=== PATIENT | female | born 1955 | race Caucasian/White ===

== ENCOUNTER 2020-08-15 09:15 | Emergency (ER) | payer MEDICARE, OTHER ==
[~2020-08-15] VITALS: Ht 162.6 cm; Wt 110.0 kg
[~2020-08-15 09:15] MED LIST: BENA20TA4 PO; LACT20SO PO; PANT40TA77 PO; SPIR100T4 PO; THIA100T22 FT
[2020-08-15 09:28] LABS: CREATININE ISTAT 2.2 mg/dL (0.5-1.4); HEMOGLOBIN ISTAT 7.8 g/dL (12-15); ION CA ISTAT 1.2 mmol/L (1.13-1.32); POTASSIUM ISTAT 5.6 mmol/L (3.5-5.0)
--- NOTE | 2020-08-15 09:38 | PHYS DOC ---
Past Medical History Past Medical History: Liver Disease, Other Additional Past Medical Histor: ETOH ABUSE Past Surgical History: Other Additional Past Surgical Histo: UNKNOWN Smoking Status: Current Every Day Smoker Alcohol Use: Heavy General Adult EDM: Chief Complaint: CPR/FULL ARREST HPI: HPI: 64-year-old female who presents to the emergency department in cardiac arrest. She was at the facility across the street when nursing staff found her unresponsive and started CPR. Patient comes in by EMS. Initial rhythm was reported to be asystole. On arrival the patient's rhythm was PEA. Onset today. Location cardiac. Duration constant. No alleviating or exacerbating factors. Review of systems, medical history, allergies, social history and surgical history are unable to be obtained because the patient is currently undergoing CPR and in cardiac arrest and is intubated. ED course: 62-year-old female presenting in cardiac arrest. We were able to get return of spontaneous circulation. The patient was intubated by myself after withdrawal of the i gel. Blood glucose was 20 so the patient received D50. CT is ordered along with blood work and EKG. IV vasopressor started for hypotension. Chest x-ray shows ET tube in good position. Broad-spectrum IV antibiotics started. Blood cultures obtained. ABG shows significant acidosis. IV bicarbonate given along with an IV bicarb drip ordered. EKG shows sinus rhythm with a regular rate. ST segments congruent. Not suggestive of acute ischemia. QRS of 76. QTc of 512. CT head reported to me by radiology reports a small possible head bleed. Neurosurgery paged at [phone]. I spoke with Lizzie dinero for nsg at 1142 informed her about the patient's condition. Neurosurgery believes low likelihood that this is a head bleed but recommended repeat imaging if symptoms persist and if the patient's other underlying medical conditions improve. I then spoke to GI about a possible esophageal variceal bleed given the patient's hematemesis while in the emergency department. Patient appears to be in DIC as she has bleeding from IV sites. Severe acidosis present. Poor prognosis I consulted with ICU pulmonology critical care Dr. Raphael who agrees with poor prognosis I spoke with the patient's family who would like to switch the patient to comfort care measures. Patient was in the emergency department on the ventilator with IV vasopressors when the patient radiate into cardiac arrest. As per the patient's wishes we will not do CPR and we will allow for the natural process to occur. Family and DPOA who is present which is the patient's granddaughter agrees with and helped direct this decision. Heart Score: C/O Chest Pain: No Risk Factors: Risk Factors: DM, Current or recent (<one month) smoker, HTN, HLP, family history of CAD, obesity. Risk Scores: Score 0 - 3: 2.5% MACE over next 6 weeks - Discharge Home Score 4 - 6: 20.3% MACE over next 6 weeks - Admit for Clinical Observation Score 7 - 10: 72.7% MACE over next 6 weeks - Early Invasive Strategies Allergies: Allergies: Allergies Coded Allergies Type Severity Reaction Last Updated Verified No Known Drug Allergies 08/05/20 No Physical Exam: PE: Constitutional: Unresponsive HEENT atraumatic pupils nonreactive. Eyes: Non-reactive pupils Neck: No JVD or crepitus Cardiovascular: No pulse initially. After pulse was obtained, patient has a regular rate and rhythm. Lungs: Crackles bilaterally with bagging Abdomen is soft and nontender without distention. Skin: Mottled Back: Atraumatic Extremities: No pulse initially. After epinephrine we were able to establish a palpable pulse. Mottled extremities without a rash. Neuro: Unresponsive. Psych: Does not make eye contact On reevaluation around 11 AM the patient is intubated with decorticate posturing unresponsive intubated without any sedation at this time. Current Patient Data: Labs: Laboratory Tests Test 08/15/20 09:24 08/15/20 09:30 POC Hemoglobin 7.8 g/dL (12-15) L POC Hematocrit 23 % (36-40) L POC Sodium 134 mmol/L (135-145) L POC Potassium 5.6 mmol/L (3.5-5.0) H POC Chloride 112 mmol/L (98-110) H POC Total CO2 9 mmol/L (23-32) L Anion Gap 20 mmol/L (6-14) H POC Blood Urea Nitrogen 30 mg/dL (8-26) H POC Creatinine 2.2 mg/dL (0.5-1.4) H Glucose Level 22 mg/dL (70-99) L POC Ionized Calcium (Phani) 1.20 mmol/L (1.13-1.32) Glucose (Fingerstick) 20 mg/dL (70-99) *L Laboratory Tests 08/15/20 09:24 EKG: EKG: [] Radiology/Procedures: Radiology/Procedures: [] Course & Med Decision Making: Course & Med Decision Making Pertinent Labs and Imaging studies reviewed. (See chart for details) [] Dragon Disclaimer: Dragon Disclaimer: This electronic medical record was generated, in whole or in part, using a voice recognition dictation system. Departure Departure Impression: Primary Impression: Cardiac arrest Additional Impressions: Hypotension Acidosis Respiratory failure Hypoglycemia Disposition: 20 Referrals: [place] ESCOBAR MD (PCP) Intubation Procedure Intubation Procedure Intub Indication: Respiratory failure Consent: Unable to give consent due to emergent nature. Medications Used: see nursing note Procedure: The patient was placed in the appropriate position. Intubation was performed with video laryngoscopy with 7-1/2 endotracheal tube. Secured at 23 a t the teeth. Initial confirmation of placement included bilateral breath sounds, tube fogging, adequate chest rise, adequate pulse oximetry reading. A chest x-ray to verify correct placement of the tube showed appropriate tube position. The patient tolerated the procedure well. Complications: none. Critical Care Time Critical care time spent was 45 minutes exclusive of procedures. Time was spent evaluating the patient, ordering the administration of medications, reevaluating the patient, discussing with the admitting provider and documenting. KIM HANCOCK MD August 15, 2020 09:38
[2020-08-15 09:39] LABS: BASO # 0.1 x10^3/uL (0.0-0.2); BASO % 1 % (0-3); EOS % 0 % (0-3); HEMATOCRIT 24.2 % (36.0-47.0); LYMPH # 2.5 x10^3/uL (1.0-4.8); LYMPH % 35 % (24-48); MEAN CORPUSCULAR HEMOGLOBIN 39 pg (25-35); MEAN CORPUSCULAR HGB CONC 28 g/dL (31-37); MEAN CORPUSCULAR VOLUME 138 fL (79-100); MONO # 0.3 x10^3/uL (0.0-1.1); MONO % 4 % (0-9); NEUT # 4.3 x10^3/uL (1.8-7.7); NEUT % 60 % (31-73); PLATELET COUNT 50 x10^3/uL (140-400); RED BLOOD COUNT 1.75 x10^6/uL (3.50-5.40); RED CELL DISTRIBUTION WIDTH 19.1 % (11.5-14.5); WHITE BLOOD COUNT 7.1 x10^3/uL (4.0-11.0)
[2020-08-15] MEDS ORDERED: PIP/TAZO PER PHARMACY MC PRN (09:45)
[2020-08-15 09:48] LABS: HEMOGLOBIN 6.8 g/dL (12.0-15.5)
--- NOTE | 2020-08-15 09:55 | RAD ---
Chest AP portable at 0935: Reason for examination: Status post code. Endotracheal tube placement. Comparison is made to previous study dated 08/05/2020. Endotracheal tube is in satisfactory position with the tip approximately 3.5 cm above the jamaal. NG tube is present with the tip and side port in the stomach. The heart size is normal. Mediastinum is u nremarkable. Lung garza show presence of diffuse right lung opacities and continued presence of some left interstitial prominence. No pleural effusions or pneumothorax are seen. There continues to be a calcified granuloma in the mid left lung field. There are chronic bony changes in the left fourth ri b. There is however a probable acute fracture without displacement at the posterior lateral left fift h rib. No acute bony abnormalities are evident. IMPRESSION: Endotracheal tube and NG tube appear to be in satisfactory position. Diffuse opacities throughout the right lung field. Continued presence of some mild interstitial opacities in the left lung field. Probable acute nondisplaced fracture posterior laterally at the left fifth rib. Electronically signed by: Tomeka Cohen MD (08/15/2020 9:52 AM) [facility]
[2020-08-15 09:56] LABS: ALBUMIN 1.5 g/dL (3.4-5.0); CALCIUM 8.1 mg/dL (8.5-10.1); CREATININE 2.2 mg/dL (0.6-1.0); DIRECT BILIRUBIN 3.2 mg/dL (0.0-0.2); GFR 22.6; TOTAL PROTEIN 5.7 g/dL (6.4-8.2)
--- NOTE | 2020-08-15 09:56 | PDOC1 ---
History and Physical Date of Admission Date of Admission DATE: 08/15/20 TIME: 09:55 History of Present Illness History of Present Illness presents to the emergency department in cardiac arrest. She was at the facility across the street when nursing staff found her unresponsive and started CPR. Patient comes in by EMS. Initial rhythm was reported to be asystole. On arrival the patient's rhythm was PEA. Onset today. Location cardiac. Duration constant. No alleviating or exacerbating factors. Review of systems, medical history, allergies, social history and surgical history are unable to be obtained because the patient is currently undergoing CPR and in cardiac arrest and is intubated. able to get return of spontaneous circulation. The patient was intubated by after withdrawal of the i gel. Blood glucose was 20 so the patient received D50. CT is ordered along with blood work and EKG. IV vasopressor started for hypotension. Chest x-ray shows ET tube in good position. Broad-spectrum IV antibiotics started. Blood cultures obtained. ABG shows significant acidosis. IV bicarbonate given along with an IV bicarb drip ordered. EKG shows sinus rhythm with a regular rate. ST segments congruent. Not suggestive of acute ischemia. QRS of 76. QTc of 512. CT head reported to me by radiology reports a small possible head bleed. Neurosurgery paged at [phone]. NS AT 1142 informed about the patient's condition. Neurosurgery believes low likelihood that this is a head bleed but recommended repeat imaging if symptoms persist and if the patient's other underlying medical conditions improve. I then spoke to GI about a possible esophageal variceal bleed given the patient's hematemesis while in the emergency department. Patient appears to be in DIC as she has bleeding from IV sites. Severe acidosis present. Poor prognosis I consulted with ICU pulmonology critical care Dr. Raphael who agrees with poor prognosis I spoke with the patient's family who would like to switch the patient to comfort care measures. Past Medical History Past Medical History Past Medical History Past Medical History: Liver Disease, Other Additional Past Medical Histor: ETOH ABUSE Past Surgical History: Other Additional Past Surgical Histo: UNKNOWN Smoking Status: Current Every Day Smoker Alcohol Use: Heavy FHX OBESITY Cardiovascular: Hyperlipidemia Pulmonary: COPD GI: Other Psych: Addictions ENT: No pertinent hx Renal/: No pertinent hx Family History Family History: Alcohol Abuse, High Cholestrol, Hypertension Social History Smoke: Quit ALCOHOL: heavy Drugs: None Current Medications Current Medications Current Medications Piperacillin Sod/ Tazobactam Sod (Zosyn Per Pharmacy) 1 each PRN DAILY PRN MC SEE COMMENTS; Start 08/15/20 at 09:45 Vancomycin HCl 250 ml @ 250 mls/hr 1X ONCE IV ; Start 08/15/20 at 10:00; Stop 08/15/20 at 10:59 Sodium Chloride 1,000 ml @ 1,000 mls/hr 1X ONCE IV ; Start 08/15/20 at 10:00; Stop 08/15/20 at 10:59 Piperacillin Sod/ Tazobactam Sod 3.375 gm/Sodium Chloride 50 ml @ 100 mls/hr Q 6HRS IV ; Start 08/15/20 at 12:00 Iohexol (Omnipaque 350 Mg/ml) 90 ml 1X ONCE IV ; Start 08/15/20 at 10:00; Stop 08/15/20 at 10:01; Status UNV Active Scripts Active Spironolactone 100 Mg Tablet 1 Tab PO DAILY Vitamin B-1 (Thiamine Mononitrate) 100 Mg Tablet 100 Mg FT BID 30 Days Pantoprazole Sodium (Pantoprazole Sodium) 40 Mg Tablet.dr 40 Mg PO DAILYAC 30 Days Lactulose 20 Gm/30 Ml Solution 20 Gm PO BIDAC 30 Days Allergies Allergies: Coded Allergies: No Known Drug Allergies (Unverified , 08/05/20) ROS Review of System UNABLE TO PARTICIPATED, ON VENT SUPPORT Physical Exam Physical Exam intubated and sedated General: moderate distress HEENT: Atraumatic, Mucous membr. moist/pink Lungs: Normal air movement Heart: RRR, no murmurs Breasts: Not examined Abdomen: Soft, No tenderness Rectal Exam: not examined Vitals Vitals Vital Signs Date Time Temp Pulse Resp B/P (MAP) Pulse Ox O2 Delivery O2 Flow Rate FiO2 08/15/20 09:30 93 Ventilator Labs Labs Laboratory Tests Test 08/15/20 09:18 08/15/20 09:24 08/15/20 09:30 White Blood Count 7.1 x10^3/uL (4.0-11.0) Red Blood Count 1.75 x10^6/uL (3.50-5.40) Hemoglobin 6.8 g/dL (12.0-15.5) Hematocrit 24.2 % (36.0-47.0) Mean Corpuscular Volume 138 fL (79-100) Mean Corpuscular Hemoglobin 39 pg (25-35) Mean Corpuscular Hemoglobin Concent 28 g/dL (31-37) Red Cell Distribution Width 19.1 % (11.5-14.5) Platelet Count 50 x10^3/uL (140-400) Neutrophils (%) (Auto) 60 % (31-73) Lymphocytes (%) (Auto) 35 % (24-48) Monocytes (%) (Auto) 4 % (0-9) Eosinophils (%) (Auto) 0 % (0-3) Basophils (%) (Auto) 1 % (0-3) Neutrophils # (Auto) 4.3 x10^3/uL (1.8-7.7) Lymphocytes # (Auto) 2.5 x10^3/uL (1.0-4.8) Monocytes # (Auto) 0.3 x10^3/uL (0.0-1.1) Eosinophils # (Auto) 0.0 x10^3/uL (0.0-0.7) Basophils # (Auto) 0.1 x10^3/uL (0.0-0.2) Bedside Hemoglobin 7.8 g/dL (12-15) Bedside Hematocrit 23 % (36-40) Bedside Sodium 134 mmol/L (135-145) Bedside Potassium 5.6 mmol/L (3.5-5.0) Bedside Chloride 112 mmol/L (98-110) Bedside Total CO2 9 mmol/L (23-32) Anion Gap 20 mmol/L (6-14) Bedside Blood Urea Nitrogen 30 mg/dL (8-26) Bedside Creatinine 2.2 mg/dL (0.5-1.4) Glucose Level 22 mg/dL (70-99) Bedside Ionized Calcium (Phani) 1.20 mmol/L (1.13-1.32) Glucose (Fingerstick) 20 mg/dL (70-99) Laboratory Tests Test 08/15/20 09:18 08/15/20 09:24 08/15/20 09:30 White Blood Count 7.1 x10^3/uL (4.0-11.0) Red Blood Count 1.75 x10^6/uL (3.50-5.40) Hemoglobin 6.8 g/dL (12.0-15.5) Hematocrit 24.2 % (36.0-47.0) Mean Corpuscular Volume 138 fL (79-100) Mean Corpuscular Hemoglobin 39 pg (25-35) Mean Corpuscular Hemoglobin Concent 28 g/dL (31-37) Red Cell Distribution Width 19.1 % (11.5-14.5) Platelet Count 50 x10^3/uL (140-400) Neutrophils (%) (Auto) 60 % (31-73) Lymphocytes (%) (Auto) 35 % (24-48) Monocytes (%) (Auto) 4 % (0-9) Eosinophils (%) (Auto) 0 % (0-3) Basophils (%) (Auto) 1 % (0-3) Neutrophils # (Auto) 4.3 x10^3/uL (1.8-7.7) Lymphocytes # (Auto) 2.5 x10^3/uL (1.0-4.8) Monocytes # (Auto) 0.3 x10^3/uL (0.0-1.1) Eosinophils # (Auto) 0.0 x10^3/uL (0.0-0.7) Basophils # (Auto) 0.1 x10^3/uL (0.0-0.2) Bedside Hemoglobin 7.8 g/dL (12-15) Bedside Hematocrit 23 % (36-40) Bedside Sodium 134 mmol/L (135-145) Bedside Potassium 5.6 mmol/L (3.5-5.0) Bedside Chloride 112 mmol/L (98-110) Bedside Total CO2 9 mmol/L (23-32) Anion Gap 20 mmol/L (6-14) Bedside Blood Urea Nitrogen 30 mg/dL (8-26) Bedside Creatinine 2.2 mg/dL (0.5-1.4) Glucose Level 22 mg/dL (70-99) Bedside Ionized Calcium (Phani) 1.20 mmol/L (1.13-1.32) Glucose (Fingerstick) 20 mg/dL (70-99) Images Images PQRS Compliance Statement: One or more of the following individualized dose reduction techniques were utilized for this examination: 1. Automated exposure control 2. Adjustment of the mA and/or kV according to patient size 3. Use of iterative reconstruction technique CT CHEST_ABDOMEN_ AND PELVIS WITHOUT CONTRAST Clinical Indication: cardiac arrest, Comparison: CT abdomen and pelvis without contrast, 08/06/2020. Technique: Helical CT imaging of the chest, abdomen and pelvis is performed without IV or oral contrast. Findings: Evaluation of vascular structures, solid organs and bowel is limited without oral and IV contrast, decreasing sensitivity for detection of pathology. Endotracheal and enteric tubes are in appropriate position. There are couple of mildly enlarged mediastinal lymph nodes that may be reactive. Calcified left hilar lymph nodes. Great vessels are normal caliber. The cardiac size is normal, no pericardial effusion. The intraventricular septum is identified outlined by blood pool, correlate for anemia. There is no pleural effusion. There are severe consolidations in the bilateral lower lobes. There are patchy groundglass opacities and small consolidations in the upper lobes and right middle lobe. These opacities may be infectious/inflammatory. Some of the opacities may be due to sequela of CPR. There is relative sparing of the lingula. Large calcified granuloma in the left lung. Abdominal and pelvic ascites is moderate and similar to prior study. There is hepatic cirrhosis and redemonstrated findings of portal hypertension. Recanalized paraumbilical vein. Cholecystectomy. The spleen size is normal. The pancreas, adrenal glands, and abdominal aorta caliber are normal. Moderate atherosclerotic calcification. There is no hydronephrosis. There is no bowel obstruction. Localizing to ascites in the right upper pelvis there is a thin linear metallic density that may be a foreign body. Finding is new from prior study, image 65 of series 4. There is Suarez catheter in decompressed urinary bladder. Probable hysterectomy. Redemonstrated anasarca. Old pelvic fractures. There are 2 screws spanning the left sacroiliac joint. There are numerous bilateral mildly displaced acute anterolateral rib fractures compatible with history of CPR. IMPRESSION: 1. Bilateral bronchopneumonia. There are severe consolidations in the bilateral lower lobes. There may be a component of aspiration pneumonia. 2. There is a linear metallic possible foreign body in the right upper pelvis. 3. Moderate abdominal ascites is similar to prior study. 4. Hepatic cirrhosis and findings of portal hypertension. 5. Anasarca. 6. Acute bilateral rib fractures, sequela of CPR. Electronically signed by: Scott Braswell MD (08/15/2020 11:36 AM) [id number] DICTATED and SIGNED BY: SCOTT BRASWELL MD DATE: 08/15/20 [id number] PATIENT: MCKENNA FELIPE DACCOUNT: [id number] : 1955 LOCATION: ER AGE: 64 SEX: F EXAM STATUS: REG ER ORD. PHYSICIAN: KIM HANCOCK MD REASON: cardiac arrest, AMS PROCEDURE: CT HEAD WO CONTRAST EXAM: CT head without contrast INDICATION: Cardiac arrest, altered mental status COMPARISON: None TECHNIQUE: Axial CT imaging through the head without intravenous contrast. Coronal and sagittal reformats were obtained. One or more of the following individualized dose reduction techniques were utilized for this examination: 1. Automated exposure control 2. Adjustment of the mA and/or kV according to patient size 3. Use of iterative reconstruction technique. FINDINGS: There is a 7 mm vague area of hyperattenuation in the right thalamus which could be a small parenchymal hemorrhage or mineralization (image 16 axial series and 32 sagittal series). This appears separate from adjacent hyperdense choroid plexus in the lateral ventricles. No other intracranial hemorrhage. No acute infarct. Ibanez-white matter differentiation is maintained. Ventricles and sulci are prominent. There is some subcortical deep white matter hypoattenuation, greater on the right. The calvarium is intact. There is fluid in the nasal cavity and right maxillary sinus, likely related to intubation. Mild mucosal thickening ethmoid air cells. Mastoid air cells are clear. Globes and orbits are intact. IMPRESSION: Vague 7 mm region of hyperattenuation in the right thalamus suspicious for small intracranial hemorrhage. Alternatively a small area of mineralization could have this appearance. There is no prior exam for comparison. Recommend short interval follow-up CT of the head to reevaluate. Critical results discussed by Dr. Mccarthy with Kim Hancock at 11:35 AM on 08/15/2020. Electronically signed by: Bakari Mccarthy MD (08/15/2020 11:36 AM) [id number] DICTATED and SIGNED BY: BAKARI MCCARTHY MD DATE: 08/15/20 [id number] VTE Prophylaxis Ordered VTE Prophylaxis Devices: Contraindicated VTE Pharmacological Prophylaxi: Contraindicated Assessment/Plan Assessment/Plan IMPRESSION: Bilateral bronchopneumonia. There are severe consolidations in the bilateral lo wer lobes. component of aspiration pneumonia. linear metallic possible foreign body in the right upper pelvis. Moderate abdominal ascites is similar to prior study. Hepatic cirrhosis and findings of portal hypertension. Anasarca. History of alcohol abuse with cirrhosis and portal hypertension. Severe protein calorie malnutrition. Cirrhosis with hepatic encephalopathy LACTIC ACIDOS, SEVERE hx severe alcohol abuse coagulopathy due to hepatic failure MACROCYTIC ANEMIA Thrombocytopenia sec to splenomegaly TOBACCO ABUSE DISORDER PLAN ADMIT ICU, Despite efforts pt in ER ON Comfort measures pulm consult cardiology consult DNR STATUS AT TIME OF 85 min cc time Justifications for Admission Other Justification SEVERE HEPATIC FAILURE BEKAH XIONG MD August 15, 2020 09:56
[2020-08-15] MEDS ORDERED: VANCOMYCIN 1GM IVPB FOR OMNI 250 ML IV ONE (10:00)
[2020-08-15] MEDS ORDERED: CONTRAST GIVEN. MC PRN (10:00)
[2020-08-15] MEDS ORDERED: IV NORMAL SALINE 1000ML BAG 1,000 ML IV ONE (10:00)
[2020-08-15] MEDS ORDERED: IOHEXOL 350 MG/ML 100 ML VIAL. IV ONE (10:00)
[2020-08-15] MEDS ORDERED: SODIUM BICARB ADULT 8.4% 50 MEQ/50 ML DISP.SYRIN. IV ONE (10:30)
[2020-08-15 10:34] LABS: BASE EXCESS ABG -28 mmol/L (-3-3); HCO3 ABG 6 mmol/L (21-28); PCO2 ABG 55 mmHg (35-46); PO2 ABG 102 mmHg (65-108); SAT O2 ABG 90 % (92-99)
[2020-08-15 10:41] LABS: FIO2 ABG 100%+5
[2020-08-15] MEDS ORDERED: NOREPINEPHRINE VIAL 8 MG in IV DEXTROSE 5% 250 ML IV STA (11:20)
--- NOTE | 2020-08-15 11:38 | RAD ---
PQRS Compliance Statement: One or more of the following individualized dose reduction techniques were utilized for this examinat ion: 1. Automated exposure control 2. Adjustment of the mA and/or kV according to patient size 3. Use of iterative reconstruction technique CT CHEST_ABDOMEN_ AND PELVIS WITHOUT CONTRAST Clinical Indication: cardiac arrest, Comparison: CT abdomen and pelvis without contrast, 08/06/2020. Technique: Helical CT imaging of the chest, abdomen and pelvis is performed without IV or oral contra st. Findings: Evaluation of vascular structures, solid organs and bowel is limited without oral and IV contrast, de creasing sensitivity for detection of pathology. Endotracheal and enteric tubes are in appropriate position. There are couple of mildly enlarged media stinal lymph nodes that may be reactive. Calcified left hilar lymph nodes. Great vessels are normal c aliber. The cardiac size is normal, no pericardial effusion. The intraventricular septum is identifie d outlined by blood pool, correlate for anemia. There is no pleural effusion. There are severe consolidations in the bilateral lower lobes. There are patchy groundglass opacities and small consolidations in the upper lobes and right middle lobe. Thes e opacities may be infectious/inflammatory. Some of the opacities may be due to sequela of CPR. There is relative sparing of the lingula. Large calcified granuloma in the left lung. Abdominal and pelvic ascites is moderate and similar to prior study. There is hepatic cirrhosis and r edemonstrated findings of portal hypertension. Recanalized paraumbilical vein. Cholecystectomy. The spleen size is normal. The pancreas, adrenal glands, and abdominal aorta caliber are normal. Moderate atherosclerotic calcification. There is no hydronephrosis. There is no bowel obstruction. Localizing to ascites in the right upper pelvis there is a thin linear metallic density that may be a foreign body. Finding is new from prior study, image 65 of series 4. There is Suarez catheter in decompressed urinary bladder. Probable hysterectomy. Redemonstrated anasar ca. Old pelvic fractures. There are 2 screws spanning the left sacroiliac joint. There are numerous bilat eral mildly displaced acute anterolateral rib fractures compatible with history of CPR. IMPRESSION: 1. Bilateral bronchopneumonia. There are severe consolidations in the bilateral lower lobes. There m ay be a component of aspiration pneumonia. 2. There is a linear metallic possible foreign body in the right upper pelvis. 3. Moderate abdominal ascites is similar to prior study. 4. Hepatic cirrhosis and findings of portal hypertension. 5. Anasarca. 6. Acute bilateral rib fractures, sequela of CPR. Electronically signed by: Scott Braswell MD (08/15/2020 11:36 AM) [id number]
--- NOTE | 2020-08-15 11:38 | RAD ---
EXAM: CT head without contrast INDICATION: Cardiac arrest, altered mental status COMPARISON: None TECHNIQUE: Axial CT imaging through the head without intravenous contrast. Coronal and sagittal refor mats were obtained. One or more of the following individualized dose reduction techniques were utilized for this examinat ion: 1. Automated exposure control 2. Adjustment of the mA and/or kV according to patient size 3. Use of iterative reconstruction technique. FINDINGS: There is a 7 mm vague area of hyperattenuation in the right thalamus which could be a small parenchym al hemorrhage or mineralization (image 16 axial series and 32 sagittal series). This appears separate from adjacent hyperdense choroid plexus in the lateral ventricles. No other intracranial hemorrhage. No acute infarct. Ibanez-white matter differentiation is maintained. Ventricles and sulci are prominen t. There is some subcortical deep white matter hypoattenuation, greater on the right. The calvarium i s intact. There is fluid in the nasal cavity and right maxillary sinus, likely related to intubation. Mild mucosal thickening ethmoid air cells. Mastoid air cells are clear. Globes and orbits are intact . IMPRESSION: Vague 7 mm region of hyperattenuation in the right thalamus suspicious for small intracra nial hemorrhage. Alternatively a small area of mineralization could have this appearance. There is no prior exam for comparison. Recommend short interval follow-up CT of the head to reevaluate. Critical results discussed by Dr. Mccarthy with Jose Luis Phillip at 11:35 AM on 08/15/2020. Electronically signed by: Emily Mccarthy MD (08/15/2020 11:36 AM) [id number]
[2020-08-15] MEDS ORDERED: NOREPINEPHRINE VIAL 8 MG in IV DEXTROSE 5% 250 ML IV PRN (11:45)
[2020-08-15] MEDS ORDERED: EPINEPHrine SYRINGE 1 MG/10 ML SYRINGE ONE (12:00)
[2020-08-15] MEDS ORDERED: SODIUM BICARBONATE VIAL 150 MEQ in IV STERILE WATER 1,000 ML IV SCH (12:00)
[2020-08-15] MEDS ORDERED: ATROPINE 1 MG/10 ML DISP.SYRINGE. ONE (12:00)
[2020-08-15] MEDS ORDERED: PIPERACILLIN/TAZOBACTAM 3.375 GM in IV NORMAL SALINE 50ML 50 ML IV SCH (12:00)
[2020-08-15] MEDS ORDERED: SODIUM BICARB ADULT 8.4% 50 MEQ/50 ML DISP.SYRIN. ONE (12:00)
[2020-08-15] MEDS ORDERED: DEXTROSE 50% 25 GM / 50ML DISP.SYRIN. IV ONE (12:00)
[2020-08-15] MEDS ORDERED: OCTREOTIDE 500 MCG in IV NORMAL SALINE 100ML 100 ML IV PRN (12:15)
[2020-08-15] MEDS ORDERED: MORPHINE SULFATE 4 MG/ML VIAL. IVP PRN (12:15)
[2020-08-15] MEDS ORDERED: PANTOPRAZOLE SODIUM IV DRIP 80 MG in IV NORMAL SALINE 100ML 100 ML IV SCH (12:15)
[2020-08-15] MEDS ORDERED: PANTOPRAZOLE IV PUSH 40 MG VIAL. IVP ONE (12:15)
[2020-08-15 12:35] VITALS: BP 49/34
--- NOTE | 2020-08-15 19:28 | EKG ---
[facility] [address] [place] [address] Test Date: 2020-08-15 Test Time: 09:40:36 Pat Name: MCKENNA FELIPE Department: Room: Gender: F [employer] Operator: : [id number] Requested By: KIM HANCOCK Order Number: [id number] Reading MD: Measurements Intervals [place] Rate: 85 P: 0 MO: 132 QRS: 43 QRSD: 76 T: 28 QT: 430 QTc: 512 Interpretive Statements SINUS RHYTHM R-S TRANSITION ZONE IN V LEADS DISPLACED TO THE RIGHT LOW LIMB LEAD VOLTAGE T ABNORMALITY IN ANTERIOR LEADS PROLONGED QT ABNORMAL ECG RI6.02 No previous ECG available for comparison
== END 2020-08-15 14:30 ==
LOC: ER 09:15
DX: I46.9 Cardiac arrest, cause unspecified (principal); I95.9 Hypotension, unspecified; E87.2 Acidosis; J96.90 Respiratory failure, unspecified, unspecified whether with hypoxia or hypercapnia; E16.2 Hypoglycemia, unspecified; F17.200 Nicotine dependence, unspecified, uncomplicated
CPT/HCPCS: 31500; 36415; 36600; 51702; 70450; 71045; 71250; 74176; 80047; 80048; 80076; 82140; 82805; 82962; 83605; 83690; 83735; 83880; 84484; 85025; 86850; 86900; 86901; 86920; 87040; 93005; 94002; 96365; 96368; 96375; 99291; J0171; J0461; J2270; J2543; J3370; J3490; J7030; J7060; 87205